=== PATIENT | female | born 1985 | race Caucasian/White ===

== ENCOUNTER 2017-09-15 20:10 | Emergency (ER) | payer OTHER ==
--- NOTE | 2017-09-15 20:19 | ER Report ---
History and Physical Time Seen By MD: 20:19 HPI/ROS Source of History: The Patient Chief Concern: hurt leg History of Present Illnesses: 32-year-old female reports that she was sliding into second base and hurt her left leg about 30 minutes ago. States she was unable to bare weight on the leg after the injury. Reports she heard a loud pop when the injury occurred. States her left ankle and lower leg is hurting. Associated abrasion to the left leg. Denies knee pain, reports difficulty moving toes and ankle. Reports pain a 7 out of 10. No treatments tried. ROS: Constitutional: Denies recent illness, malaise, chills, fever. HEENT: Denies headache. No sinus congestion. No sore throat. Cardiovascular: Denies chest pain, palpitations, or diaphoresis. Respiratory: Reports shortness of breath, denies cough or wheezing. Gastrointestinal System: Denies nausea, vomiting, diarrhea or constipation Musculoskeletal: Denies hip or knee pain bilaterally, reports left ankle pain, reports left leg pain, reports decreased ROM of the left ankle Allergies: Coded Allergies: No Known Drug Allergies (Unverified , 09/15/17) Home Meds Active Scripts Ondansetron (ZOFRAN ODT) 4 Mg Tab.rapdis, 4 MG PO Q6H Y for NAUSEA/VOMITING, # 20 TAB.GHASSAN Prov:LESIA WATT [facility] 09/15/17 Oxycodone Hcl/Acetaminophen (PERCOCET 5-325 MG TABLET) 1 Each Tablet, 1 EACH PO Q4-6H Y for PAIN, #20 TAB Prov:LESIA WATT [facility] 09/15/17 Reported Medications Levothyroxine Sodium (LEVOTHYROXINE SODIUM) 25 Mcg Tablet, 25 MCG PO QDAY 09/15/17 Past Medical/Surgical History Denies significant past medical or surgical history. Constitutional Vital Sign - Last 24 Hours 09/15/17 20:18 Pulse 127 Resp 16 B/P (MAP) 127/80 Pulse Ox 96 O2 Delivery Room Air Physical Exam Constitutional: 32-year-old female in moderate distress. HEENT: Normocephalic and atraumatic. Cardiovascular: 2+ pedal pulses BL equal. PMI - left midclavicular at the 5th ICS. Aortic, pulmonic, tricuspid, and mitral areas - clear S1/S2; no murmur, no S3, or S4. Respiratory: Respiratory Excursion BL equal and symmetrical; no presence of lag ; quiet, rhythmic and effortless. No retractions. BL clear and equal. Musculoskeletal: full ROM of the hip and knee bilaterally, limited ROM of the left ankle with flexion, extension, internal and external rotation. Right ankle with full ROM. Pain on palpation of the leg and lateral malleolus. No pain on palpation of the right leg or ankle. Integumentary: abrasion to the left leg, no presence of rash. Differential Diagnoses: fibula fracture, tibia fracture, fracture of the medial malleolus, sprain Medical Decision Making EKG/Imaging Imaging Left lower leg and ankle: Indication: Injury. Technique: 5 images were obtained. Comparison: None. Findings: There are acute fractures of the distal tibia and fibula. The fibular fracture exhibits posterior and lateral displacement. The tibial fracture is not significantly displaced. There is slight lateral subluxation of the talus. The skeletal structures are otherwise intact. There is normal mineralization. Soft tissue swelling is present around the ankle. IMPRESSION: Acute fractures of the distal tibia and fibula. Report Dictated By: Calvin Jean MD at 09/15/2017 9:24 PM Report E-Signed By: Calvin Jean MD at 09/15/2017 9:28 PM Left lower leg and ankle: Indication: Injury. Technique: 5 images were obtained. Comparison: None. Findings: There are acute fractures of the distal tibia and fibula. The fibular fracture exhibits posterior and lateral displacement. The tibial fracture is not significantly displaced. There is slight lateral subluxation of the talus. The skeletal structures are otherwise intact. There is normal mineralization. Soft tissue swelling is present around the ankle. IMPRESSION: Acute fractures of the distal tibia and fibula. Report Dictated By: Calvin Jean MD at 09/15/2017 9:24 PM Report E-Signed By: Calvin Jean MD at 09/15/2017 9:28 PM ED Course/Re-evaluation ED Course 32-year-old female presents to the emergency department after injuring her left leg while sliding into second base. History and physical examination obtained. Differential diagnoses considered and shared with the patient. X-ray of the tibia, fibula, and ankle obtained. Morphine and Zofran administered for comfort. X-ray indicates bimanual fracture of the tibia and fibula. The patient was placed in a posterior, saddle splint. She was sent home with crutches, advise to bare no weight on the leg, and follow up with her desired orthopedic surgeon in the Morning. She has been prescribed Percocet and Zofran for comfort and encouraged to elevate and ice the extremity. The patient and family does not have any questions at this time and is in agreement with the plan. Decision to Disposition Date: Sep 15, 2017 Decision to Disposition Time: 21:49 Depart Departure Latest Vital Signs Vital Signs Date Time Temp Pulse Resp B/P (MAP) Pulse Ox O2 Delivery O2 Flow Rate FiO2 09/15/17 20:18 127 16 127/80 96 Room Air Impression: Primary Impression: Bimalleolar ankle fracture Condition: Improved Disposition: HOME OR SELF-CARE Referrals: RONY GUERRERO MD New Scripts Ondansetron (ZOFRAN ODT) 4 Mg Tab.rapdis 4 MG PO Q6H Y for NAUSEA/VOMITING, #20 TAB.GHASSAN Prov: LESIA WATT 09/15/17 Oxycodone Hcl/Acetaminophen (PERCOCET 5-325 MG TABLET) 1 Each Tablet 1 EACH PO Q4-6H Y for PAIN, #20 TAB Prov: LEISA WATT 09/15/17 Patient Instructions: Ankle Fracture (DC) Additional Instructions: Limit activity by pain. Ice the ankle through the splint; 2-3 times a day for 20-30 minutes. If the splint is feeling too tight you may loosen the sai wrap and rewrap it. Follow up with [facility], call tomorrow to make an appointment. Keep the splint dry, wrap it with a bag and tape to keep the water out. Return to the ER with uncontrollable pain or numbness to the foot. You may take Ibuprofen as needed for pain in addition to the pain medication. Don't take any additional Tylenol while on the pain medication. Problem Qualifiers Primary Impression: Bimalleolar ankle fracture Encounter type: initial encounter Fracture type: closed Laterality: left Qualified Codes: S82.842A - Displaced bimalleolar fracture of left lower leg, initial encounter for closed fracture LESIA WATT Sep 15, 2017 20:19
[2017-09-15] MEDS ORDERED: LEVO25TA61 PO (20:22)
[2017-09-15] MEDS ORDERED: ONDANSETRON 4 MG ODT TABDP SL ONE (20:25)
[2017-09-15] MEDS ORDERED: APAP/HYDROCODONE 325/5 TAB PO ONE (20:25)
[2017-09-15] MEDS ORDERED: MORPHINE 4 MG/ML SDV IVP ONE (20:30)
[2017-09-15 21:30] VITALS: BP 116/54
--- NOTE | 2017-09-15 21:32 | RADIOLOGY IMAGING REPORT ---
FACILITY: [facility] [place] PATIENT NAME: Giancarlo Olivia : 1985 MR: [id number] V: [id number] EXAM DATE: ORDERING PHYSICIAN: LESIA WATT TECHNOLOGIST: Location: [facility] Patient: Giancarlo Olivia : 1985 Visit/Account:[id number] Date of Sevice: 09/15/2017 Left lower leg and ankle: Indication: Injury. Technique: 5 images were obtained. Comparison: None. Findings: There are acute fractures of the distal tibia and fibula. The fibular fracture exhibits pos terior and lateral displacement. The tibial fracture is not significantly displaced. There is slight lateral subluxation of the talus. The skeletal structures are otherwise intact. There is normal mica miner blasting alization. Soft tissue swelling is present around the ankle. IMPRESSION: Acute fractures of the distal tibia and fibula. Report Dictated By: Calvin Jean MD at 09/15/2017 9:24 PM Report E-Signed By: Calvin Jean MD at 09/15/2017 9:28 PM WSN:[id number]
--- NOTE | 2017-09-15 21:33 | RADIOLOGY IMAGING REPORT ---
[place] [facility] [place] Giancarlo Olivia : 1985 MR: [id number] V: [id number] EXAM DATE: ORDERING PHYSICIAN: LESIA WATT TECHNOLOGIST: Location: [facility] Patient: Giancarlo Olivia : 1985 Visit/Account:[id number] Date of Sevice: 09/15/2017 Left lower leg and ankle: Indication: Injury. Technique: 5 images were obtained. Comparison: None. Findings: There are acute fractures of the distal tibia and fibula. The fibular fracture exhibits pos terior and lateral displacement. The tibial fracture is not significantly displaced. There is slight lateral subluxation of the talus. The skeletal structures are otherwise intact. There is normal workers compensation examiner alization. Soft tissue swelling is present around the ankle. IMPRESSION: Acute fractures of the distal tibia and fibula. Report Dictated By: Calvin Jean MD at 09/15/2017 9:24 PM Report E-Signed By: Calvin Jean MD at 09/15/2017 9:28 PM WSN:[id number]
[2017-09-15] MEDS ORDERED: OXYC-865 PO (21:48)
[2017-09-15] MEDS ORDERED: ONDA4TAB PO (21:48)
[2017-09-15] MEDS ORDERED: ONDANSETRON 4 MG ODT TH SL ONE (21:50)
[2017-09-15] MEDS ORDERED: oxyCODONE/ACETAMIN 5/325MG TH 2 TAB/BOTTLE PO ONE (21:50)
== END 2017-09-15 22:13 | disposition home or self-care (01) ==
LOC: ER 20:35
DX: S82.842A Displaced bimalleolar fracture of left lower leg, initial encounter for closed fracture (principal); X58.XXXA Exposure to other specified factors, initial encounter; Y93.64 Activity, baseball; Y92.320 Baseball field as the place of occurrence of the external cause; Y99.8 Other external cause status
CPT/HCPCS: 73590; 73610; 96374; 99283; J2270; S0119

== ENCOUNTER → 2017-09-18 | Outpatient (CLI) | payer OTHER ==
[~2017-09-18] MED LIST: LEVO25TA61 PO; ONDA4TAB PO; OXYC-865 PO
== END ==
LOC: LAB 11:53
PROVIDERS: ATTEND Anesthesiology
DX: Z01.812 Encounter for preprocedural laboratory examination (principal); E03.9 Hypothyroidism, unspecified; S82.892A Other fracture of left lower leg, initial encounter for closed fracture
CPT/HCPCS: 36415; 84443

== ENCOUNTER 2017-10-01 15:15 | Observation (INO) | payer OTHER ==
[~2017-10-01] VITALS: Ht 157.5 cm; Wt 80.3 kg
[~2017-10-01 15:15] MED LIST changes: -ACET-2043 PO; -CELE200C7 PO; -ETON1VAG7 VG; -RIV10 PO
--- NOTE | 2017-10-01 15:18 | ER Report ---
History and Physical Time Seen By MD: 15:17 HPI/ROS CHIEF COMPLAINT: PE HISTORY OF PRESENT ILLNESS: PT dx with bimalleolar fracture in 09/15/2017. Pt had surgery a week ago thursday to repair the ankle via [facility]. PT states a few days ago had some cramping in her left leg but did not think much of it. Pt today started with SOB. PT denies pain in chest accept with deep breath. Pt went to urgent care and had blood work and CT. PT called to go to the emergency department for further treatment. Pt also is on control REVIEW OF SYSTEMS: Constitutional: No fever, no chills. Eyes: No discharge. ENT: No sore throat. Cardiovascular: No chest pain, no palpitations. Respiratory: No cough, + shortness of breath. Gastrointestinal: No abdominal pain, no vomiting. Genitourinary: No hematuria. Musculoskeletal: + recent ankle fracture L Skin: No rashes. Neurological: No headache. Allergies: Coded Allergies: No Known Drug Allergies (Unverified , 10/01/17) Home Meds Reported Medications Etonogestrel/Ethinyl Estradiol (NUVARING VAGINAL RING) 1 Each Vag.ring, 1 EACH VG QMONTH, VAG.RING 10/01/17 Levothyroxine Sodium (LEVOTHYROXINE SODIUM) 25 Mcg Tablet, 25 MCG PO QDAY 09/15/17 Discontinued Scripts Ondansetron (ZOFRAN ODT) 4 Mg Tab.rapdis, 4 MG PO Q6H Y for NAUSEA/VOMITING, # 20 TAB.GHASSAN Prov:LESIA WATT 09/15/17 Oxycodone Hcl/Acetaminophen (PERCOCET 5-325 MG TABLET) 1 Each Tablet, 1 EACH PO Q4-6H Y for PAIN, #20 TAB Prov:LESIA WATT 09/15/17 Past Medical/Surgical History Pmhx: hypothryroid Pshx: bimalleolar fx repair Reviewed Nurses Notes: Yes Old Medical Records Reviewed: Yes Hx Smoking: No Hx Alcohol Use: No Constitutional Vital Sign - Last 24 Hours 10/01/17 15:15 Temp 98.1 Pulse 125 Resp 18 B/P (MAP) 131/88 Pulse Ox 95 O2 Delivery Room Air Physical Exam General Appearance: The patient is alert, has no immediate need for airway protection and no signs of toxicity. Eyes: Pupils equal and round no pallor or injection, EOMI ENT: no pharyngeal erythema or exudates, Mucous membranes are moist Respiratory: There are no retractions, lungs are clear to auscultation. Cardiovascular: Regular rate and rhythm. pulses are equal and symmetrical Gastrointestinal: Abdomen is soft and non tender, no masses, bowel sounds normal, no guarding, no rigidity or rebound Neurological: Cranial nerves II-XII grossly intact, no sensory or motor loss Skin: Warm and dry, no rashes. Musculoskeletal: Neck is supple non tender, no vertebral tenderness, Upper extremities have FROM and no sign of deformity; Left lower extremity is in cast , good cap refil to toes <2 seconds; r lower extremity FROM and no sign of deformity. DIFFERENTIAL DIAGNOSIS: After history and physical exam differential diagnosis was considered for PE Medical Decision Making EKG/Imaging EKG Interpretation sinus tach @ 120 Imaging B/L PE with small region of developing pulmonary infarction. Refer to report for details. ED Course/Re-evaluation Clinical Indication for ER IV: IV Access ED Course 10/01/2017 3:43:11 pm Will send off hypercoaguable panel even though we have a reason for her PE today with recent surgery and BCP. Due to b/l pe and pts possible pulmonary infarction will admit to hospital. Spoke with Dr. Etienne who accepts pt and would like pt place on xarelto. Decision to Disposition Date: Oct 01, 2017 Decision to Disposition Time: 15:44 Depart Departure Latest Vital Signs Vital Signs Date Time Temp Pulse Resp B/P (MAP) Pulse Ox O2 Delivery O2 Flow Rate FiO2 10/01/17 15:15 98.1 125 18 131/88 95 Room Air Impression: Primary Impression: Bilateral pulmonary embolism Additional Impression: Pulmonary infarction Condition: Condition Unchanged Disposition: Admitted from ER Problem Qualifiers HAMILTON SOARES DO Oct 01, 2017 15:18
[2017-10-01] MEDS ORDERED: ETON1VAG7 VG (15:26)
--- NOTE | 2017-10-01 15:42 | EKG ---
FACILITY: [facility] [place] PATIENT NAME: RODGER BURCH : 1985 MR: [id number] V: [id number] EXAM DATE: ORDERING PHYSICIAN: HAMILTON SOARES TECHNOLOGIST: Test Reason : PE Blood Pressure : / mmHG Vent. Rate : 117 BPM Atrial Rate : 117 BPM P-R Int : 128 ms QRS Dur : 068 ms QT Int : 314 ms P-R-T Axes : 063 055 048 degrees QTc Int : 438 ms Sinus tachycardia Otherwise normal ECG No previous ECGs available Confirmed by NIDA BIRMINGHAM ([id number]) on 10/01/2017 3:46:07 PM Referred By: Confirmed By:NIDA BIRMINGHAM
[2017-10-01] MEDS ORDERED: RIVAROXABAN 10 MG TAB PO ONE (15:45)
[2017-10-01 16:01] LABS: INR 1.01
[2017-10-01 16:53] VITALS: BP 140/92
[2017-10-01] MEDS ORDERED: INFLUENZA VIRUS VAC 0.5 ML SYR IM ONLY ONE (17:20)
--- NOTE | 2017-10-01 17:27 | History & Physical ---
History of Present Illness Chief Complaint Shortness of breath History of Present Illness This patient presented to the emergency room complaining of shortness of breath. She suffered an ankle fracture 3 weeks ago and has been ambulating with crutches. She noticed a sudden onset of shortness of breath earlier today. History Problems: (1) Hypothyroid Home Meds Reported Medications Etonogestrel/Ethinyl Estradiol (NUVARING VAGINAL RING) 1 Each Vag.ring, 1 EACH VG QMONTH, VAG.RING 10/01/17 Levothyroxine Sodium (LEVOTHYROXINE SODIUM) 25 Mcg Tablet, 25 MCG PO QDAY 09/15/17 Discontinued Scripts Ondansetron (ZOFRAN ODT) 4 Mg Tab.rapdis, 4 MG PO Q6H Y for NAUSEA/VOMITING, # 20 TAB.GHASSAN Prov:LESIA WATT [facility] 09/15/17 Oxycodone Hcl/Acetaminophen (PERCOCET 5-325 MG TABLET) 1 Each Tablet, 1 EACH PO Q4-6H Y for PAIN, #20 TAB Prov:LESIA WATT [facility] 09/15/17 Allergies: Coded Allergies: No Known Drug Allergies (Unverified , 10/01/17) Hx Smoking: No Hx Alcohol Use: No Review of Systems All Systems Reviewed/Normal: Yes, Except as Noted Respiratory: Shortness of Breath Exam Vital Signs Vital Signs Date Time Temp Pulse Resp B/P (MAP) Pulse Ox O2 Delivery O2 Flow Rate FiO2 10/01/17 16:35 113 25 92 10/01/17 16:30 131/91 (104) 10/01/17 15:15 98.1 Room Air Neuro: No Gross deficits Eyes: PERRLA Cardiovascular: Regular Rate and Rhythm Respiratory: Clear to Auscultation Extremities: No Edema Integumentary: No Cyanosis Medical Decision Making EKG / Imaging Imaging Ct scan reviewed. Assessment and Plan Problems: (1) Bilateral pulmonary embolism Status: Acute Assessment & Plan: Her CT scan did show bilateral pulmonary emboli. She has been started on treatment with Xarelto. She will need to be on 15mg twice daily for 21 days and then 20mg once daily for 3-6 months. (2) Hypothyroid Assessment & Plan: She is on chronic treatment with Synthroid. Copies to: QUANG HANNAH MD Venous Thromboembolism Antithrombotics Is Pt On Any Antithrombotics?: Yes Exam Sepsis Risk: No Definite Risk VLAENCIA,NIDA DO Oct 01, 2017 17:27
[2017-10-01 19:00] VITALS: BP 113/92
[2017-10-01] MEDS: RIVAROXABAN 10 MG TAB PO SCH (20:23)
[2017-10-01 22:20] VITALS: BP 133/76
[2017-10-01 23:53] VITALS: BP 119/71
[2017-10-02 03:31] VITALS: BP 118/69
[2017-10-02 05:45] LABS: PLATELET COUNT, AUTOMATED 248 K/uL (150-450)
[2017-10-02] MEDS ORDERED: NS(*) 0.9% 1000 ML BAG 1,000 ML IV ONE (06:05)
[2017-10-02] MEDS ORDERED: LOPERAMIDE HCL 2 MG CAP PO PRN (06:05)
[2017-10-02 07:13] VITALS: BP 117/70
[2017-10-02] MEDS: RIVAROXABAN 10 MG TAB PO SCH (09:01)
[2017-10-02] MEDS ORDERED: CELECOXIB 200 MG CAP PO PRN (09:30)
[2017-10-02] MEDS ORDERED: ACETAMINOPHEN 500 MG TAB PO PRN (09:30)
[2017-10-02] MEDS ORDERED: RIV10 PO (11:59)
[2017-10-02] MEDS ORDERED: ACET-2043 PO (11:59)
[2017-10-02] MEDS ORDERED: CELE200C7 PO (11:59)
[2017-10-02 12:14] VITALS: Ht 157.5 cm; Wt 80.3 kg
--- NOTE | 2017-10-02 12:14 | Hospitalist Depart ---
Discharge Summary Reason for Hosp/Final Diag: (1) Bilateral pulmonary embolism Status: Acute Hospital Course & Plan: She presented with SOB the day of admission with some dull clavicular pain. Her CT scan did show bilateral pulmonary emboli. Bimalleolar fracture in 09/15/2017 and repair about a week ago. She also has a Nuvaring vaginal ring (which has estrogen). She has been started on treatment with Xarelto. She will need to be on 15mg twice daily for 21 days and then 20mg once daily for 3-6 months. A hypercoagulable panel is pending. We discussed the risks of bleeding and the need to avoid situations where she would be at risk for major bleeding. She is to follow up with her PCP in 1-2 weeks to discuss those results, and follow up her symptoms. She can take Celebrex and Tylenol for pain. (2) Hypothyroid Hospital Course & Plan: She is on chronic treatment with Synthroid. Departure Weight (Pounds): 177 Result Diagram: 10/02/17 0527 Hypercoagulable studies pending Item Value Date Time Human Chorionic Gonadotropin, Qual Negative 10/01/17 1537 Prothrombin Time 13.3 seconds 10/01/17 1537 Prothromb Time International Ratio 1.01 10/01/17 1537 Activated Partial Thromboplast Time 25 seconds 10/01/17 1537 Imaging 10/01/17 Chest CTA - 1. Positive exam for pulmonary embolism. Moderate clot burden to both lungs. 2. Small region of peripheral airspace disease in the right lower lobe posteriorly may represent developing pulmonary infarct. 3. No pleural effusion. 4. Normal heart size. EKG Vent. Rate : 117 BPM Atrial Rate : 117 BPM P-R Int : 128 ms QRS Dur : 068 ms QT Int : 314 ms P-R-T Axes : 063 055 048 degrees QTc Int : 438 ms Sinus tachycardia Otherwise normal ECG No previous ECGs available Confirmed by NIDA BIRMINGHAM ([id number]) on 10/01/2017 3:46:07 PM Condition: Improved Discharge: Home Discharge Instructions Home Meds Active Scripts Rivaroxaban (XARELTO 10 MG TAB (OR EQUIV)) 10 Mg Tablet, 15 MG PO BID, #42 Prov:ANDREW CREWS MD 10/02/17 Acetaminophen (ACETAMINOPHEN) 500 Mg Tablet, 1000 MG PO Q8H Y for PAIN for 14 Days, Prov:ANDREW CREWS MD 10/02/17 Celecoxib (Celecoxib) 200 Mg Capsule, 200 MG PO Q12H Y for pain, #20 CAPSULE Prov:ANDREW CREWS MD 10/02/17 Reported Medications Etonogestrel/Ethinyl Estradiol (NUVARING VAGINAL RING) 1 Each Vag.ring, 1 EACH VG QMONTH, VAG.RING 10/01/17 Levothyroxine Sodium (LEVOTHYROXINE SODIUM) 25 Mcg Tablet, 25 MCG PO QDAY 09/15/17 Discontinued Scripts Ondansetron (ZOFRAN ODT) 4 Mg Tab.rapdis, 4 MG PO Q6H Y for NAUSEA/VOMITING, # 20 TAB.GHASSAN Prov:LESIA WATT 09/15/17 Oxycodone Hcl/Acetaminophen (PERCOCET 5-325 MG TABLET) 1 Each Tablet, 1 EACH PO Q4-6H Y for PAIN, #20 TAB Prov:LESIA WATT [employer] 09/15/17 Diet: Regular Activity: As Tolerated Special Instructions: Go to the ER for worsening chest pain or worsening SOB. Followup with your PCP in 1-2 weeks to continue the Xarelto prescription and to follow up labs and symptoms Copies to: RONY GUERRERO MD; QUANG HANNAH MD Venous Thromboembolism Antithrombotics Is Pt On Any Antithrombotics?: Yes ANDREW CREWS MD Oct 02, 2017 12:14
[2017-10-02] MEDS ORDERED: RIVAROXABAN 10 MG TAB PO SCH (21:00)
== END 2017-10-02 14:15 | disposition home or self-care (01) ==
LOC: ER 15:19 → MED 16:08 → INTOOBSV 16:08
PROVIDERS: ADMIT Family Medicine; ATTEND Family Medicine
DX: I26.99 Other pulmonary embolism without acute cor pulmonale (principal); R06.02 Shortness of breath; E03.9 Hypothyroidism, unspecified
CPT/HCPCS: 36415; 81241; 81291; 83090; 84703; 85025; 85300; 85303; 85306; 85610; 85730; 86147; 93005; 99283; G0378; J7030

== ENCOUNTER → 2017-10-01 | Outpatient (CLI) | payer OTHER ==
[~2017-10-01] MED LIST changes: +ACET-2043 PO; +CELE200C7 PO; +ETON1VAG7 VG; +IOPAMIDOL 76% 75 ML INFUS BTL 75 ML ONE; +NS 0.9% 25 ML BAG 50 ML ONE; +RIV10 PO
--- NOTE | 2017-10-01 15:00 | RADIOLOGY IMAGING REPORT ---
FACILITY: [facility] PATIENT NAME: Giancarlo Olivia : 1985 MR: [id number] V: [id number] EXAM DATE: ORDERING PHYSICIAN: NIDA GOLDSTEIN TECHNOLOGIST: Location: [facility] Patient: Giancarlo Olivia : 1985 Visit/Account:[id number] Date of Sevice: 10/01/2017 EXAMINATION: CTA of the chest with IV contrast HISTORY: Shortness of breath. Chest pain. TECHNIQUE: Pulmonary embolus protocol - Thin axial CT images of the chest were obtained with IV con trast during maximal pulmonary arterial opacification. Reconstruction of the source data includes mul tiplanar 2D coronal and sagittal reconstructed images, and 3D coronal and sagittal MIP images. Repres entative images have been stored on PACS. One of the following dose optimization techniques was utilized in the performance of this exam: Autom ated exposure control; adjustment of the mA and/or kV according to the patient's size; or use of an i terative reconstruction technique. Specific details can be referenced in the facility's radiology C T exam operational policy. Contrast: 75 mL of IV Isovue-370. COMPARISON: None. FINDINGS: Pulmonary arteries: Exam is positive for pulmonary embolism. There is a filling defect in the distal right main pulmonary artery, extending into segmental and subsegmental branches in the right upper a nd lower lobes. There are additional filling defects present within segmental and subsegmental branch es in the left lower lobe and lingula. Heart, aorta, and great vessels: Normal caliber thoracic aorta. Normal heart size. Normal RV:LV rati o measuring 0.8. No pericardial effusion. Lungs and pleura: Small region of peripheral airspace disease in the right lower lobe posteriorly ma y represent developing pulmonary infarct. No other focal consolidation in either lung. The central ai rways are patent. No pleural effusion or pneumothorax. Mediastinum and vicenta: Negative. Visualized upper abdomen: Unremarkable. Chest wall: Negative. Bones: Negative. IMPRESSION: 1. Positive exam for pulmonary embolism. Moderate clot burden to both lungs. 2. Small region of peripheral airspace disease in the right lower lobe posteriorly may represent deve loping pulmonary infarct. 3. No pleural effusion. 4. Normal heart size. Findings were discussed with NIDA GOLDSTEIN at 10/01/2017 2:53 PM. Report Dictated By: Lan Caldera MD at 10/01/2017 2:49 PM Report E-Signed By: Lan Caldera MD at 10/01/2017 2:56 PM WSN:[id number]
== END ==
LOC: CT 13:53
PROVIDERS: ATTEND Nurse Practitioner Family
DX: I26.99 Other pulmonary embolism without acute cor pulmonale (principal)
CPT/HCPCS: 71275; Q9967

== ENCOUNTER → 2017-10-01 | Outpatient (REF) | payer OTHER ==
[~2017-10-01] MED LIST changes: -IOPAMIDOL 76% 75 ML INFUS BTL 75 ML ONE; -NS 0.9% 25 ML BAG 50 ML ONE
[2017-10-01 12:48] LABS: PLATELET COUNT, AUTOMATED 253 K/uL (150-450)
== END ==
PROVIDERS: ATTEND Nurse Practitioner Family
DX: R07.9 Chest pain, unspecified (principal)
CPT/HCPCS: 82040; 82247; 82310; 82374; 82435; 82565; 82947; 84075; 84132; 84155; 84295; 84450; 84460; 84520; 85025; 85379

== ENCOUNTER 2017-10-02 12:34 | Outpatient (RCR) | payer OTHER ==
[2017-10-02 12:14] VITALS: BMI 32.4
[~2017-10-02 12:34] MED LIST changes: +ACET-2043 PO; +CELE200C7 PO; +ETON1VAG7 VG; +RIV10 PO
--- NOTE | 2017-10-03 10:17 | Transitional Care Management ---
TCM Discharge Criteria Transitional Care Comment: 10/02 Post ankle fr- walking with crutches. Suggested she call [facility] to see if she has a WC she can borrow. Also contact HR at to see if she can borrow a WC for distances around the . 10/03 unable to contact ÓSCAR CRUMP Oct 03, 2017 10:17
--- NOTE | 2017-10-05 12:29 | Transitional Care Management ---
Assessment Visit Type: Telephone Visit Spoke with: Giancarlo Cardiac: WNL Respiratory: WNL Respiratory Comment: 10/05 Denies SOB. Is on room air. GI: Nutrition: WNL Wt Gain/Loss: WNL Constipation?: No : WNL Musculoskeletal, Exercise: WNL Except Musculoskeletal, Excercise Com: 10/05 uses crutches due to an ankle fx. Mobility/Falls: WNL Except Mobility Comment: 10/05 Crutches Integumentary: WNL Feeling of Well Being: WNL Socialization: WNL Pain/Management: WNL Scheduled Follow-Up with [facility]: Yes Needed or Pending Tests: No Following Discharge Instructio: Yes TCM Discharge Criteria Medication Knowledge: 10/05 Reviewed Xarelto. Transitional Care Comment: 10/02 Post ankle fr- walking with crutches. Suggested she call [facility] to see if she has a WC she can borrow. Also contact HR at to see if she can borrow a WC for distances around the . 10/03 unable to contact 10/05 She feels good, no SOB. Is taking Xarelto as prescribed. SENTHIL HAMMOND Oct 05, 2017 12:29
[2017-10-08] MEDS ORDERED: LEVO25TA61 PO (12:53)
--- NOTE | 2017-10-12 13:47 | Transitional Care Management ---
Assessment Visit Type: Telephone Visit Spoke with: Giancarlo Cardiac: WNL Respiratory: WNL Respiratory Comment: 10/05 Denies SOB. Is on room air. 10/12 Had CP and came to er on 10/08. Denies recurrent pain or SOB. Clot burden is decreased per repeat CT GI: Nutrition: WNL Wt Gain/Loss: WNL Constipation?: No : WNL Musculoskeletal, Exercise: WNL Except Musculoskeletal, Excercise Com: 10/05 uses crutches due to an ankle fx. Mobility/Falls: WNL Except Mobility Comment: 10/05 Crutches 10/12 reports she is "crutching around" and moving alot in her h ome Integumentary: WNL Feeling of Well Being: WNL Feeling of Well Being Comment: 10/12 hasn't been allowed to return to work Socialization: WNL Pain/Management: WNL Pain/Management Comment: 10/12 denies recurrent CP Scheduled Follow-Up with Provi: Yes (10/[address] Ignacio on 10/19) Needed or Pending Tests: No Following Discharge Instructio: Yes TCM Discharge Criteria Medication Knowledge: 10/05 Reviewed Xarelto. 10/12 has f/u on 10/19 to renew xarelto; plan on 20mg qday for 3-6 mos when current 15mg bid is done in 21 days total tx Transitional Care Comment: 10/02 Post ankle fr- walking with crutches. Suggested she call [facility] to see if she has a WC she can borrow. Also contact HR at to see if she can borrow a WC for distances around the . 10/03 unable to contact 10/05 She feels good, no SOB. Is taking Xarelto as prescribed. 10/12 No recurrent pain or sob after er visit on 10/08. taking xarelto and has f/u. labs are resulted and I told her she could review with provider. agree to f/u phone call RAHEL KAY Oct 12, 2017 13:47
[2017-10-19] MEDS ORDERED: RIVA20TA PO (13:48)
[2017-10-19] MEDS ORDERED: NORE0.3536 PO (13:48)
[2017-10-19] MEDS ORDERED: LEVO25TA57 PO (13:48)
--- NOTE | 2017-10-20 11:34 | Transitional Care Management ---
Assessment Visit Type: Telephone Visit (10/20Kyle) Cardiac: WNL Respiratory: WNL Respiratory Comment: 10/05 Denies SOB. Is on room air. 10/12 Had CP and came to er on 10/08. Denies recurrent pain or SOB. Clot burden is decreased per repeat CT 10/20 Denies CP OR SOB GI: Nutrition: WNL Wt Gain/Loss: WNL Constipation?: No : WNL Musculoskeletal, Exercise: WNL Except Musculoskeletal, Excercise Com: 10/05 uses crutches due to an ankle fx. Mobility/Falls: WNL Except Mobility Comment: 10/05 Crutches 10/12 reports she is "crutching around" and moving alot in her h ome 10/20 Ankle is much improved and will start PT this week. Integumentary: WNL Feeling of Well Being: WNL Feeling of Well Being Comment: 10/12 hasn't been allowed to return to work 10/20 will return to work with limitations the first week of October Socialization: WNL Pain/Management: WNL Pain/Management Comment: 10/12 denies recurrent CP 10/20 Denies CP and ankle pain is doing better and uses celebrex only a couple times a day for pain control Scheduled Follow-Up with Provi: Yes (10/[address] Gonzales yesterday. Enc her to gt a PCP gave her number to Medical Bldg) Needed or Pending Tests: No Following Discharge Instructio: Yes TCM Discharge Criteria Medication Knowledge: 10/05 Reviewed Xarelto. 10/12 has f/u on 10/19 to renew xarelto; plan on 20mg qday for 3-6 mos when current 15mg bid is done in 21 days total tx Transitional Care Comment: 10/02 Post ankle fr- walking with crutches. Suggested she call [facility] to see if she has a WC she can borrow. Also contact HR at to see if she can borrow a WC for distances around the . 10/03 unable to contact 10/05 She feels good, no SOB. Is taking Xarelto as prescribed. 10/12 No recurrent pain or sob after er visit on 10/08. taking xarelto and has f/u. labs are resulted and I told her she could review with provider. agree to f/u phone call 08/28 She had concerns about taking contral medications and didn't feel Dr Garces explained much to her. I called Lauren in our inhouse Pharm[facility] and tried to explain to Giancarlo the reson of stopping her Nuvaring was because it conained hi dose of estrogen which could contribute to her acquiring PE's so Dr Garces ordered her a Progesterine onlu med. And passed on to her that the best contraceptive for her at this time might be a copper IUD-sggeted she talk with Dr Odonnell when she sees her again. I also she get a PCP and gave her some names and numbers, Will call her back 1 more time to make sure all is going well with her. ÓSCAR CRUMP Oct 20, 2017 11:34
[2017-10-20] MEDS ORDERED: RIVA20TA PO (14:27)
--- NOTE | 2017-10-28 13:40 | Transitional Care Management ---
Assessment Visit Type: Telephone Visit Spoke with: Giancarlo Cardiac: WNL Respiratory: WNL Respiratory Comment: 10/05 Denies SOB. Is on room air. 10/12 Had CP and came to er on 10/08. Denies recurrent pain or SOB. Clot burden is decreased per repeat CT 10/20 Denies CP OR SOB GI: Nutrition: WNL Wt Gain/Loss: WNL Constipation?: No : WNL Musculoskeletal, Exercise: WNL Except Musculoskeletal, Excercise Com: 10/05 uses crutches due to an ankle fx. 10/28 Continued use of crutches. Mobility/Falls: WNL Except Mobility Comment: 10/05 Crutches 10/12 reports she is "crutching around" and moving alot in her h ome 10/20 Ankle is much improved and will start PT this week. 10/28 PT continues, she returned to work today. Integumentary: WNL Feeling of Well Being: WNL Feeling of Well Being Comment: 10/12 hasn't been allowed to return to work 10/20 will return to work with limitations the first week of November 01 She returned to work today. Socialization: WNL Pain/Management: WNL Pain/Management Comment: 10/12 denies recurrent CP 10/20 Denies CP and ankle pain is doing better and uses celebrex only a couple times a day for pain control Scheduled Follow-Up with Provi: Yes (10/[address] Gonzales yesterday. Enc her to gt a PCP gave her number to Medical Bldg) Needed or Pending Tests: No Following Discharge Instructio: Yes TCM Discharge Criteria Medication Knowledge: 10/05 Reviewed Xarelto. 10/12 has f/u on 10/19 to renew xarelto; plan on 20mg qday for 3-6 mos when current 15mg bid is done in 21 days total tx Transitional Care Comment: 10/02 Post ankle fr- walking with crutches. Suggested she call [facility] to see if she has a WC she can borrow. Also contact HR at to see if she can borrow a WC for distances around the . 10/03 unable to contact 10/05 She feels good, no SOB. Is taking Xarelto as prescribed. 10/12 No recurrent pain or sob after er visit on 10/08. taking xarelto and has f/u. labs are resulted and I told her she could review with provider. agree to f/u phone call 10/20 She had concerns about taking contral medications and didn't feel Dr Garces explained much to her. I called Lauren in our inhouse Pharmacy and tried to explain to Giancarlo the reson of stopping her Nuvaring was because it conained hi dose of estrogen which could contribute to her acquiring PE's so Dr Garces ordered her a Progesterine onlu med. And passed on to her that the best contraceptive for her at this time might be a copper IUD-sggeted she talk with Dr Odonnell when she sees her again. I also she get a PCP and gave her some names and numbers, Will call her back 1 more time to make sure all is going well with her. 10/28 She is doing well, started back to work today. She has not selected a PCP to follow up with. She knows the s/s to watch for and her meds. She agreed to discharge from the program. SENTHIL HAMMOND Oct 28, 2017 13:40
== END 2017-10-28 14:14 | disposition home or self-care (01) ==
LOC: TCM 12:34
PROVIDERS: ATTEND Nurse Practitioner
DX: Z02.9 Encounter for administrative examinations, unspecified (principal)

== ENCOUNTER 2017-10-08 10:40 | Emergency (ER) | payer OTHER ==
[2017-10-02 12:14] VITALS: Wt 80.3 kg
--- NOTE | 2017-10-08 10:54 | ER Report ---
History and Physical Time Seen By MD: 10:53 Hx. of Stated Complaint: PT REPORTS L UPPER CHEST PAIN, HX PE AFTER LL FX HPI/ROS CHIEF COMPLAINT: Chest pain, shortness of breath, pain with deep inspiration HISTORY OF PRESENT ILLNESS: 32-year-old female patient presents to emergency room with complaint of chest pain, shortness breath, pain with deep inspiration. Patient states that she was recently admitted to the hospital with a diagnosis of pulmonary emboli. She states she was started on his role discharged home. She states that she has had no problems until today. States she woke up this morning with left upper chest pain and pain with deep inspiration. She states that she was feeling short of breath. Patient states she 's been taking her medication as prescribed. She states she's not had any nausea , vomiting or diarrhea. She states that she has no other problems. She is concerned that she has recurrent pulmonary emboli. Patient states she also has a history of hypothyroidism and has been out of her thyroid medication and would like a refill on that as well. REVIEW OF SYSTEMS: Respiratory: As noted above Cardiovascular: As noted above. Gastrointestinal: No vomiting, no abdominal pain. Musculoskeletal: No back pain. Allergies: Coded Allergies: No Known Drug Allergies (Unverified , 10/08/17) Home Meds Active Scripts Levothyroxine Sodium (LEVOTHYROXINE SODIUM) 25 Mcg Tablet, 25 MCG PO QDAY, #30 TAB Prov:LESIA WATT 10/08/17 Rivaroxaban (XARELTO 10 MG TAB (OR EQUIV)) 10 Mg Tablet, 15 MG PO BID, #42 Prov:ANDREW CREWS MD 10/02/17 Acetaminophen (ACETAMINOPHEN) 500 Mg Tablet, 1000 MG PO Q8H Y for PAIN for 14 Days, Prov:ANDREW CREWS MD 10/02/17 Reported Medications Levothyroxine Sodium (LEVOTHYROXINE SODIUM) 25 Mcg Tablet, 25 MCG PO QDAY 09/15/17 Discontinued Reported Medications Etonogestrel/Ethinyl Estradiol (NUVARING VAGINAL RING) 1 Each Vag.ring, 1 EACH VG QMONTH, VAG.RING 10/01/17 Discontinued Scripts Celecoxib (Celecoxib) 200 Mg Capsule, 200 MG PO Q12H Y for pain, #20 CAPSULE Prov:ANDREW CREWS MD 10/02/17 Ondansetron (ZOFRAN ODT) 4 Mg Tab.rapdis, 4 MG PO Q6H Y for NAUSEA/VOMITING, # 20 TAB.GHASSAN Prov:LESIA WATT PRENATAL GENETIC COUNSELOR 09/15/17 Oxycodone Hcl/Acetaminophen (PERCOCET 5-325 MG TABLET) 1 Each Tablet, 1 EACH PO Q4-6H Y for PAIN, #20 TAB Prov:LESIA WATT PRENATAL GENETIC COUNSELOR 09/15/17 Past Medical/Surgical History Patient has a past medical history pulmonary emboli, left tib-fib fracture, hypothyroidism, marijuana use. Patient has surgical history of a tib-fib repair. Reviewed Nurses Notes: Yes Hx Smoking: No Smoking Status: Never Smoker Hx Substance Use Disorder: Yes (last a couple weeks ago) Hx Alcohol Use: No Constitutional Vital Sign - Last 24 Hours 10/08/17 10/08/17 10/08/17 10/08/17 10:40 10:42 10:55 11:01 Temp 97.8 Pulse 93 87 Resp 18 12 B/P (MAP) 133/79 133/79 (97) 114/95 (101) Pulse Ox 93 96 O2 Delivery Room Air 10/08/17 10/08/17 10/08/17 10/08/17 11:10 11:15 11:30 11:35 Pulse 88 94 74 88 Resp 21 15 27 28 B/P (MAP) 116/78 (91) Pulse Ox 93 95 93 92 10/08/17 10/08/17 10/08/17 10/08/17 11:50 11:55 12:00 12:10 Pulse 98 78 79 Resp 14 23 B/P (MAP) 113/90 (98) Pulse Ox 93 94 95 10/08/17 10/08/17 10/08/17 12:25 12:30 12:40 Pulse 80 91 Resp 8 13 B/P (MAP) 123/68 (86) Pulse Ox 95 92 Physical Exam General Appearance: The patient is alert, has no immediate need for airway protection and no current signs of toxicity. Eyes: Pupils equal and round no injection. Respiratory: Chest is non tender, lungs are clear to auscultation. Patient does have some guarding with deep inspiration. Cardiac: regular rate and rhythm Gastrointestinal: Abdomen is soft and non tender, no masses, bowel sounds normal. Musculoskeletal: Neck: Neck is supple and non tender. Extremities have full range of motion and are non tender. Skin: No rashes or lesions. DIFFERENTIAL DIAGNOSIS: After history and physical exam differential diagnosis was considered for shortness of breath including but not limited to pulmonary infectious process, COPD, asthma, pulmonary embolus and congestive heart failure. Medical Decision Making Data Points Result Diagram: 10/08/17 1050 10/08/17 1050 Laboratory Hematology Test 10/08/17 10:50 Red Blood Count 5.10 M/uL (4.17-5.56) Mean Corpuscular Volume 90.0 fL (80.0-96.0) Mean Corpuscular Hemoglobin 31.1 pg (26.0-33.0) Mean Corpuscular Hemoglobin Concent 34.6 g/dL (32.0-36.0) Red Cell Distribution Width 13.1 % (11.5-14.5) Mean Platelet Volume 7.5 fL (7.2-11.1) Neutrophils (%) (Auto) 62.2 % (39.4-72.5) Lymphocytes (%) (Auto) 27.3 % (17.6-49.6) Monocytes (%) (Auto) 7.9 % (4.1-12.4) Eosinophils (%) (Auto) 1.8 % (0.4-6.7) Basophils (%) (Auto) 0.8 % (0.3-1.4) Nucleated RBC Relative Count (auto) 0.1 /100WBC Neutrophils # (Auto) 4.1 K/uL (2.0-7.4) Lymphocytes # (Auto) 1.8 K/uL (1.3-3.6) Monocytes # (Auto) 0.5 K/uL (0.3-1.0) Eosinophils # (Auto) 0.1 K/uL (0.0-0.5) Basophils # (Auto) 0.1 K/uL (0.0-0.1) Nucleated RBC Absolute Count (auto) 0.00 K/uL Prothrombin Time 18.7 seconds (12.0-14.4) Prothromb Time International Ratio 1.54 Activated Partial Thromboplast Time 38 seconds (23-35) Sodium Level 141 mmol/L (137-145) Potassium Level 3.8 mmol/L (3.5-5.0) Chloride Level 104 mmol/L (98-107) Carbon Dioxide Level 25 mmol/L (22-31) Blood Urea Nitrogen 12 mg/dl (7-18) Creatinine 0.80 mg/dl (0.52-1.04) Glomerular Filtration Rate Calc > 60.0 Random Glucose 99 mg/dl (75-110) Calcium Level 9.6 mg/dl (8.4-10.2) Total Bilirubin 0.3 mg/dl (0.2-1.3) Aspartate Amino Transf (AST/SGOT) 26 U/L (0-35) Alanine Aminotransferase (ALT/SGPT) 48 U/L (0-56) Alkaline Phosphatase 84 U/L (0-126) Troponin I < 0.012 ng/ml Total Protein 7.4 g/dl (6.3-8.2) Albumin 4.2 g/dl (3.5-5.0) Human Chorionic Gonadotropin, Qual Negative (NEGATIVE) Chemistry Test 10/08/17 10:50 White Blood Count 6.5 k/uL (4.5-11.0) Red Blood Count 5.10 M/uL (4.17-5.56) Hemoglobin 15.9 g/dL (12.0-16.0) Hematocrit 45.9 % (34.0-47.0) Mean Corpuscular Volume 90.0 fL (80.0-96.0) Mean Corpuscular Hemoglobin 31.1 pg (26.0-33.0) Mean Corpuscular Hemoglobin Concent 34.6 g/dL (32.0-36.0) Red Cell Distribution Width 13.1 % (11.5-14.5) Platelet Count 351 K/uL (150-450) Mean Platelet Volume 7.5 fL (7.2-11.1) Neutrophils (%) (Auto) 62.2 % (39.4-72.5) Lymphocytes (%) (Auto) 27.3 % (17.6-49.6) Monocytes (%) (Auto) 7.9 % (4.1-12.4) Eosinophils (%) (Auto) 1.8 % (0.4-6.7) Basophils (%) (Auto) 0.8 % (0.3-1.4) Nucleated RBC Relative Count (auto) 0.1 /100WBC Neutrophils # (Auto) 4.1 K/uL (2.0-7.4) Lymphocytes # (Auto) 1.8 K/uL (1.3-3.6) Monocytes # (Auto) 0.5 K/uL (0.3-1.0) Eosinophils # (Auto) 0.1 K/uL (0.0-0.5) Basophils # (Auto) 0.1 K/uL (0.0-0.1) Nucleated RBC Absolute Count (auto) 0.00 K/uL Prothrombin Time 18.7 seconds (12.0-14.4) Prothromb Time International Ratio 1.54 Activated Partial Thromboplast Time 38 seconds (23-35) Glomerular Filtration Rate Calc > 60.0 Calcium Level 9.6 mg/dl (8.4-10.2) Total Bilirubin 0.3 mg/dl (0.2-1.3) Aspartate Amino Transf (AST/SGOT) 26 U/L (0-35) Alanine Aminotransferase (ALT/SGPT) 48 U/L (0-56) Alkaline Phosphatase 84 U/L (0-126) Troponin I < 0.012 ng/ml Total Protein 7.4 g/dl (6.3-8.2) Albumin 4.2 g/dl (3.5-5.0) Human Chorionic Gonadotropin, Qual Negative (NEGATIVE) Coagulation Test 10/08/17 10:50 Prothrombin Time 18.7 seconds Prothromb Time International Ratio 1.54 Activated Partial Thromboplast Time 38 seconds EKG/Imaging EKG Interpretation 12 lead EKG: Rhythm: normal sinus rhythm with a ventricular rate of 82 bpm [place]: normal QRS: normal ST segments: normal Imaging CT angiogram chest with contrast Indication: Chest pain. Pain with inspiration. History of previous pulmonary embolism. Comparison: 10/01/2017. Technique: Axial CT images are obtained through the chest after administration of 75 mL Isovue 370 IV contrast. Reformatted coronal and sagittal images were reviewed as well as coronal MIP images. One of the following dose optimization techniques was utilized in the performance of this exam: automated exposure control; adjustment of the mA and/ or kV according to the patient's size; or use of an iterative reconstruction technique. Specific details can be referenced in the facility's radiology CT exam operational policy. FINDINGS: There is a persistent a prominent emboli in the distal right main pulmonary artery with some nonoccluding extension into the segmental branch of the right upper lobe pulmonary artery and right lower lobe pulmonary arteries. The right middle lobe pulmonary arteries show no obvious emboli. The emboli on the right side are similar but mildly less extensive than the previous exam. There are small nonoccluding emboli seen in the subsegmental branches of the left lower lobe pulmonary arteries. A similar to the previous examination and slightly less extensive. The left main pulmonary artery is patent. The remaining left pulmonary arteries show no obvious emboli. Heart is normal size without pericardial effusion. The right ventricle measures 3.5 cm and the left ventricle measures 4.6 cm. The aorta shows no aneurysm or dissection. The mediastinum and hilar region show no enlarged lymph nodes or abnormal density. The posterior basal region the left lower lobe does show a small pleural-based consolidation, slightly more prominent than the previous exam. The right lower lobe shows at least 2 peripheral areas of early consolidation, this is similar to the previous examination. The lungs show no other indication of consolidation. No pleural effusion or pneumothorax. No discrete nodules or other focal interstitial opacities. Airways are clear. Bony structures show no acute fracture or aggressive bony lesions. Chest wall shows no enlarged axillary lymph nodes or masses. Limited views of the upper abdomen are unremarkable. IMPRESSION: 1. Persistent bilateral pulmonary emboli, right greater than left. These do appear similar to the previous admission and mildly less extensive. There is no indication of right heart failure. 2. There is persistent 2 pleural-based opacities/consolidation in the right lower lobe likely sequelae to pulmonary emboli representing infarcts. There is a small slightly more prominent opacity/consolidation in the posterior pleural- based area of the left lower lobe and likely also a small pulmonary infarct. The lungs show no other focal abnormality. I called report to LESIA WATT at 10/08/2017 12:27 PM. Report Dictated By: Omar Bravo at 10/08/2017 12:16 PM Report E-Signed By: Omar Bravo at 10/08/2017 12:28 PM ED Course/Re-evaluation ED Course Patient was admitted to an exam room, history and physical were obtained. Differential diagnoses were considered. On examination lungs are clear, heart is regular, abdomen soft nontender. Patient did seem to have some discomfort with taking deep breaths and was guarding. Due to the recent diagnosis of pulmonary emboli a CBC, CMP, troponin, EKG, CT pulmonary angiogram or done. HCG was done which was negative. Labs were unremarkable, imaging showed slight improvement to her clot burden. I discussed findings with patient. We'll go ahead and discharge her home at this time. I would like her to go ahead and continue his role to. I like her to increase fluid intake, get plenty of rest, continue with normal activities. Patient stated that she did need a refill of her levothyroxine that was given to her for one month. She is to follow-up with her primary care provider. She is return to emergency room if condition worsens. Patient verbalized understanding and agreement with plan. Decision to Disposition Date: Oct 08, 2017 Decision to Disposition Time: 12:52 Depart Departure Latest Vital Signs Vital Signs Date Time Temp Pulse Resp B/P (MAP) Pulse Ox O2 Delivery O2 Flow Rate FiO2 10/08/17 12:40 91 13 92 10/08/17 12:30 123/68 (86) 10/08/17 10:40 97.8 Room Air Impression: Primary Impression: Bilateral pulmonary embolism Additional Impression: Hypothyroid Condition: Improved Disposition: HOME OR SELF-CARE New Scripts Levothyroxine Sodium (LEVOTHYROXINE SODIUM) 25 Mcg Tablet 25 MCG PO QDAY, #30 TAB Prov: LESIA WATT 10/08/17 Patient Instructions: Pulmonary Embolism (DC) Additional Instructions: Increase fluid intake. Get plenty of rest. Follow up with your primary care provider in the next week. Return to the ER if condition worsens. If pain is worse in the morning then get up and move around. If pain is staying the same or getting worse come back to the ER. Continue with current medications. Problem Qualifiers Additional Impression: Hypothyroid Hypothyroidism type: unspecified Qualified Codes: E03.9 - Hypothyroidism, unspecified LESIA WATT Oct 08, 2017 10:53
[2017-10-08] MEDS ORDERED: NS(*) 0.9% 1000 ML BAG 1,000 ML IV ONE (11:00)
[2017-10-08 11:11] LABS: PLATELET COUNT, AUTOMATED 351 K/uL (150-450)
--- NOTE | 2017-10-08 11:14 | EKG ---
FACILITY: [facility] PATIENT NAME: RODGER BURCH : 1985 MR: [id number] V: [id number] EXAM DATE: ORDERING PHYSICIAN: LESIA WATT TECHNOLOGIST: JOHN Test Reason : ER Blood Pressure : / mmHG Vent. Rate : 082 BPM Atrial Rate : 082 BPM P-R Int : 126 ms QRS Dur : 082 ms QT Int : 368 ms P-R-T Axes : 032 046 034 degrees QTc Int : 429 ms Sinus rhythm No acute appearing findings Confirmed by BLANCA CARTER ([id number]) on 10/08/2017 12:23:48 PM Referred By: HARMONY Confirmed By:BLANCA CARTER
[2017-10-08 11:16] LABS: INR 1.54
[2017-10-08 12:30] VITALS: BP 123/68
--- NOTE | 2017-10-08 12:31 | RADIOLOGY IMAGING REPORT ---
FACILITY: [facility] PATIENT NAME: Giancarlo Olivia : 1985 MR: [id number] V: [id number] EXAM DATE: ORDERING PHYSICIAN: LESIA WATT TECHNOLOGIST: Location: [facility] Patient: Giancarlo Olivia : 1985 Visit/Account:[id number] Date of Sevice: 10/08/2017 CT angiogram chest with contrast Indication: Chest pain. Pain with inspiration. History of previous pulmonary embolism. Comparison: 10/01/2017. Technique: Axial CT images are obtained through the chest after administration of 75 mL Isovue 370 IV contrast. Reformatted coronal and sagittal images were reviewed as well as coronal MIP images. One of the following dose optimization techniques was utilized in the performance of this exam: auto mated exposure control; adjustment of the mA and/or kV according to the patient's size; or use of an iterative reconstruction technique. Specific details can be referenced in the facility's radiology C T exam operational policy. FINDINGS: There is a persistent a prominent emboli in the distal right main pulmonary artery with some nonocclu ding extension into the segmental branch of the right upper lobe pulmonary artery and right lower lob e pulmonary arteries. The right middle lobe pulmonary arteries show no obvious emboli. The emboli on the right side are similar but mildly less extensive than the previous exam. There are small nonocclu ding emboli seen in the subsegmental branches of the left lower lobe pulmonary arteries. A similar to the previous examination and slightly less extensive. The left main pulmonary artery is patent. The remaining left pulmonary arteries show no obvious emboli. Heart is normal size without pericardial effusion. The right ventricle measures 3.5 cm and the left v entricle measures 4.6 cm. The aorta shows no aneurysm or dissection. The mediastinum and hilar region show no enlarged lymph nodes or abnormal density. The posterior basal region the left lower lobe does show a small pleural-based consolidation, slightl y more prominent than the previous exam. The right lower lobe shows at least 2 peripheral areas of ea rly consolidation, this is similar to the previous examination. The lungs show no other indication of consolidation. No pleural effusion or pneumothorax. No discrete nodules or other focal interstitial opacities. Airways are clear. Bony structures show no acute fracture or aggressive bony lesions. Chest wall shows no enlarged axill vladimir lymph nodes or masses. Limited views of the upper abdomen are unremarkable. IMPRESSION: 1. Persistent bilateral pulmonary emboli, right greater than left. These do appear similar to the pre vious admission and mildly less extensive. There is no indication of right heart failure. 2. There is persistent 2 pleural-based opacities/consolidation in the right lower lobe likely sequela e to pulmonary emboli representing infarcts. There is a small slightly more prominent opacity/consoli dation in the posterior pleural-based area of the left lower lobe and likely also a small pulmonary i nfarct. The lungs show no other focal abnormality. I called report to LESIA WATT at 10/08/2017 12:27 PM. Report Dictated By: Omar Bravo at 10/08/2017 12:16 PM Report E-Signed By: Omar Bravo at 10/08/2017 12:28 PM WSN:[id number]
[2017-10-08] MEDS ORDERED: LEVO25TA61 PO (12:53)
== END 2017-10-08 13:01 | disposition home or self-care (01) ==
LOC: ER 10:45
DX: I26.99 Other pulmonary embolism without acute cor pulmonale (principal); E03.9 Hypothyroidism, unspecified
CPT/HCPCS: 71275; 82040; 82247; 82310; 82374; 82435; 82565; 82947; 84075; 84132; 84155; 84295; 84450; 84460; 84484; 84520; 84703; 85025; 85610; 85730; 93005; 99284; Q9967

== ENCOUNTER → 2017-11-15 | Outpatient (REF) | payer OTHER ==
[~2017-11-15] MED LIST changes: +LEVO25TA57 PO; +NORE0.3536 PO; +RIVA20TA PO
[2017-11-15 14:25] LABS: PLATELET COUNT, AUTOMATED 300 K/uL (150-450)
== END ==
PROVIDERS: ATTEND Nurse Practitioner Family
DX: N92.0 Excessive and frequent menstruation with regular cycle (principal)
CPT/HCPCS: 82040; 82247; 82310; 82374; 82435; 82565; 82947; 84075; 84132; 84155; 84295; 84450; 84460; 84520; 85025

== ENCOUNTER → 2017-12-08 | Outpatient (CLI) | payer OTHER ==
[~2017-12-08] MED LIST changes: +FLU60VIA41 IM; +MEDR10TA57 PO
== END ==
LOC: LAB 11:14
PROVIDERS: ATTEND Emergency Medicine
DX: I26.99 Other pulmonary embolism without acute cor pulmonale (principal)
CPT/HCPCS: 36415; 81240; 85379

== ENCOUNTER → 2018-01-07 | Outpatient (CLI) | payer OTHER | LOC: LAB 09:43 | PROVIDERS: ATTEND Emergency Medicine | DX: I26.99 Other pulmonary embolism without acute cor pulmonale (principal); R74.0 Nonspecific elevation of levels of transaminase and lactic acid dehydrogenase [LDH] | CPT/HCPCS: 36415; 82040; 82247; 82248; 83540; 83550; 84075; 84155; 84450; 84460; 85379 ==